=== PATIENT | male | born 1955 | race Hispanic/Latino ===

== ENCOUNTER 2020-10-26 20:42 | Emergency (ER) | payer OTHER ==
[~2020-10-26] VITALS: Ht 172.7 cm; Wt 93.0 kg
[2020-10-26] MEDS ORDERED: DECADRON4 M1 PO (20:54)
== END 2020-10-26 21:00 | disposition home or self-care (01) ==
LOC: ER 21:00
DX: U07.1 COVID-19 (principal); R06.00 Dyspnea, unspecified; I10 Essential (primary) hypertension; Z85.828 Personal history of other malignant neoplasm of skin
CPT/HCPCS: 99282